=== PATIENT | male | born 1960 | race African-American/Black ===

== ENCOUNTER 2024-09-04 19:29 | Emergency (ER) | payer OTHER ==
[~2024-09-04] VITALS: Ht 188 cm; Wt 95.0 kg
[~2024-09-04 19:29] MED LIST changes: -BUPIVACAINE HCL/PF 0.5% (5MG/ML) 10ML ONE; -DEXAMETHASONE 4MG/ML 1ML VIAL IV PRN; -FENTANYL CITRATE/PF 50MCG/ML 5ML VIAL ONE; -GLYCOPYRROLATE 0.2MG/ML VIAL 5ML IV PRN; -HYDRALAZINE 20MG/ML VIAL IV PRN; -HYDROMORPHONE HCL/PF 1MG/ML INJ IV PRN; -ONDANSETRON HCL 4MG/2ML INJ IV PRN; -PROPOFOL 200MG/20ML VIAL IV ONE; -SKIN ADHESIVE 0.7 GM EA TOP ONE
[2024-09-04 19:36] VITALS: TEMP 36.4; O2SAT 99
[2024-09-04 22:27] VITALS: BP 160/101; PULSE 94; RESP 18; O2SAT 99
== END 2024-09-04 22:30 | disposition home or self-care (01) ==
LOC: ER 19:29
DX: R22.1 Localized swelling, mass and lump, neck (principal); D72.829 Elevated white blood cell count, unspecified; I10 Essential (primary) hypertension; Z98.890 Other specified postprocedural states
CPT/HCPCS: 99281; 99282

== ENCOUNTER → 2024-09-04 | Day surgery (SDC) | payer OTHER ==
[~2024-09-04] VITALS: Ht 188 cm; Wt 94.8 kg
[~2024-09-04] MED LIST: AMLO10TA80 PO; BUPIVACAINE HCL/PF 0.5% (5MG/ML) 10ML ONE; DEXAMETHASONE 4MG/ML 1ML VIAL IV PRN; FENTANYL CITRATE/PF 50MCG/ML 5ML VIAL ONE; GLYCOPYRROLATE 0.2MG/ML VIAL 5ML IV PRN; HYDRALAZINE 20MG/ML VIAL IV PRN; HYDROMORPHONE HCL/PF 1MG/ML INJ IV PRN; ONDANSETRON HCL 4MG/2ML INJ IV PRN; PROPOFOL 200MG/20ML VIAL IV ONE; SKIN ADHESIVE 0.7 GM EA TOP ONE
[2024-09-04 07:27] LABS: CLARITY URINE CLEAR (CLEAR); COLOR URINE YELLOW (YELLOW); GLUCOSE URINE NEGATIVE (NEGATIVE); KETONES URINE NEGATIVE (NEGATIVE); LEUKOCYTE ESTERASE URINE NEGATIVE (NEGATIVE); NITRITE URINE NEGATIVE (NEGATIVE); OCCULT BLOOD URINE NEGATIVE (NEGATIVE); PH URINE 7.0 (4.5-8.0); PROTEIN URINE NEGATIVE (NEGATIVE); SPECIFIC GRAVITY URINE 1.012 (1.005-1.030); UROBILINOGEN URINE 1.0 E.U./dL (0.2-1.0)
[2024-09-04 07:38] LABS: BASOPHILS % 0.7 % (0.0-2.0); EOSINOPHILS % 2.1 % (0.0-5.0); HEMATOCRIT. 44.8 % (42.0-52.0); HEMOGLOBIN. 15.4 g/dL (14.0-18.0); LYMPHOCYTES % 53.7 % (20.0-50.0); MEAN PLATELET VOLUME 8.5 fl (7.4-10.4); MONOCYTES % 9.1 % (2.0-8.0); NEUTROPHILS % 34.4 % (40.0-76.0); PLATELET 240 x1000/uL (130-400); RED BLOOD CELL COUNT 5.12 mill/uL (4.7-6.1); RED CELL DISTRIBUTION WIDTH 13.0 % (11.6-14.6)
[2024-09-04] MEDS: LACTATED RINGERS 1,000 ML IV SCH (07:53)
[2024-09-04 07:58] LABS: CREATININE 1.3 mg/dL (0.6-1.3)
[2024-09-04 07:59] LABS: UREA NITROGEN BLOOD 13 mg/dL (9-23)
== END | disposition home or self-care (01) ==
LOC: OR 06:53
PROVIDERS: ATTEND Surgery
DX: D17.0 Benign lipomatous neoplasm of skin and subcutaneous tissue of head, face and neck (principal); I10 Essential (primary) hypertension; Z79.899 Other long term (current) drug therapy; Z98.890 Other specified postprocedural states
CPT/HCPCS: 21555 ×2; 80048; 81003; 85025; 36415; 88304; 93005; J3010; J0665; J2704